=== PATIENT | male | born 1930 | race Caucasian/White ===

== ENCOUNTER 2018-01-05 19:33 | Observation (INO) | payer MEDICARE ==
[~2018-01-05] VITALS: Ht 175.3 cm; Wt 78.0 kg
[2018-01-05 19:40] VITALS: BP 135/63; PULSE 64; RESP 16; TEMP 98; O2SAT 100
[2018-01-05 19:49] VITALS: O2SAT 100
[2018-01-05] MEDS ORDERED: OMEP40CA2 PO (19:51)
[2018-01-05] MEDS ORDERED: MULTTAB4 PO (19:51)
[2018-01-05] MEDS ORDERED: LOVA20TA PO (19:51)
[2018-01-05] MEDS ORDERED: CALC1TAB87 PO (19:51)
[2018-01-05] MEDS ORDERED: CLAR10CA3 PO (19:51)
--- NOTE | 2018-01-05 19:53 | PD ---
HPI Chief Complaint: Syncope/Near-Syncope Time Seen by Provider: 19:38 Travel History International Travel<30 days: No Contact w/Intl Traveler<30days: No Traveled to known affect area: No History of Present Illness HPI The patient is a 87-year-old male who presents to the emergency department via EMS from [facility] for near syncope. The patient was at dinner earlier today, sitting in the sun, when he suddenly became nauseated. The patient developed nausea, became lightheaded, and had a near syncopal episode according to the family member. The patient was sitting down, did not fall out of the chair. He awakened shortly, there was no postictal state, however, he did have 1 episode of vomiting afterwards. The patient was administered Zofran 4 mg intravenously prior to arrival. He denied any chest pain, palpitations, shortness of breath, or focal deficits prior to the near syncopal episode or after the near-syncopal episode. He denies any history of syncope. The patient's only complaint upon arrival is mild nausea. He denies any abdominal pain. Symptoms are moderate. PFSH Past Medical History Narrative Medical Hyperlipidemia, GERD Past Surgical History Narrative Surgical Noncontributory Social History Tobacco Use: No Allergies-Medications (Allergen,Severity, Reaction): Coded Allergies: No Known Allergies (Unverified , 01/05/18) Reported Meds & Prescriptions Reported Meds & Active Scripts Active Reported Claritin (Loratadine) 10 Mg Cap 10 Mg PO DAILY PRN Calcium 600 with Vitamin D (Calcium Carbonate-Cholecalciferol) 600-400 mg-Unit Tab 1 Tab PO BID Multi Vitamin Mens (Multiple Vitamin) 1 Tab Tab 1 Tab PO DAILY Omeprazole 40 Mg Cap 40 Mg PO DAILY Lovastatin 20 Mg Tab 20 Mg PO DAILY Review of Systems Except as stated in HPI: all other systems reviewed are Neg General / Constitutional: No: Fever Eyes: No: Blurred Vision HENT: Positive: Lightheadedness, No: Headaches Cardiovascular: Positive: Syncope, No: Chest Pain or Discomfort, Palpitations, Irregular Rhythm, Tachycardia, Diaphoresis Gastrointestinal: Positive: Nausea, Vomiting, No: Abdominal Pain Musculoskeletal: No: Weakness Neurologic: Positive: Dizziness, Syncope, No: Weakness, Focal Abnormalities Physical Exam Narrative GENERAL: Awake, alert, pleasant 87-year-old male who appears his stated age and is in no acute respiratory distress. SKIN: Focused skin assessment warm/dry. HEAD: Atraumatic. Normocephalic. EYES: No injection or drainage. ENT: No nasal bleeding or discharge. Mucous membranes pink and moist. NECK: Trachea midline. No JVD. CARDIOVASCULAR: Regular rate and rhythm. No murmur appreciated. Heart rate in the 60s. RESPIRATORY: No accessory muscle use. Clear to auscultation. Breath sounds equal bilaterally. GASTROINTESTINAL: Abdomen soft, non-tender, nondistended. No epigastric tenderness. No guarding or rigidity. MUSCULOSKELETAL: No obvious deformities. No clubbing. No cyanosis. No edema. NEUROLOGICAL: Awake and alert. No obvious cranial nerve deficits. Motor grossly within normal limits. Normal speech. Nonfocal. Oriented 4. Follows commands without difficulty. PSYCHIATRIC: Appropriate mood and affect; insight and judgment normal. Data Data Last Documented VS Vital Signs Date Time Temp Pulse Resp B/P (MAP) Pulse Ox O2 Delivery O2 Flow Rate FiO2 01/05/18 21:45 90 18 148/101 (117) 99 Room Air 01/05/18 19:40 98.0 Orders Orders Electrocardiogram (01/05/18 19:46) Complete Blood Count With Diff (01/05/18 19:46) Comprehensive Metabolic Panel (01/05/18 19:46) Magnesium (Mg) (01/05/18 19:46) Ckmb (Isoenzyme) Profile (01/05/18 19:46) Troponin I (01/05/18 19:46) Ecg Monitoring (01/05/18 19:46) Iv Access Insert/Monitor (01/05/18 19:46) Oximetry (01/05/18 19:46) Ondansetron Inj (Zofran Inj) (01/05/18 20:00) Sodium Chloride 0.9% Flush (Ns Flush) (01/05/18 20:00) Orthostatic Vital Signs (01/05/18 19:46) Sodium Chlorid 0.9% 500 Ml Inj (Ns 500 M (01/05/18 20:00) CKMB (01/05/18 20:00) CKMB% (01/05/18 20:00) Chest, Single Ap (01/05/18 ) Admit Order (Ed Use Only) (01/05/18 22:00) Labs Laboratory Tests Test 01/05/18 20:00 White Blood Count 6.7 TH/MM3 Red Blood Count 4.32 MIL/MM3 Hemoglobin 14.6 GM/DL Hematocrit 41.5 % Mean Corpuscular Volume 96.0 FL Mean Corpuscular Hemoglobin 33.8 PG Mean Corpuscular Hemoglobin Concent 35.3 % Red Cell Distribution Width 13.5 % Platelet Count 239 TH/MM3 Mean Platelet Volume 8.1 FL Neutrophils (%) (Auto) 50.7 % Lymphocytes (%) (Auto) 39.2 % Monocytes (%) (Auto) 6.2 % Eosinophils (%) (Auto) 3.4 % Basophils (%) (Auto) 0.5 % Neutrophils # (Auto) 3.4 TH/MM3 Lymphocytes # (Auto) 2.6 TH/MM3 Monocytes # (Auto) 0.4 TH/MM3 Eosinophils # (Auto) 0.2 TH/MM3 Basophils # (Auto) 0.0 TH/MM3 CBC Comment DIFF FINAL Differential Comment Blood Urea Nitrogen 23 MG/DL Creatinine 0.99 MG/DL Random Glucose 122 MG/DL Total Protein 7.5 GM/DL Albumin 3.6 GM/DL Calcium Level 8.8 MG/DL Magnesium Level 2.2 MG/DL Alkaline Phosphatase 75 U/L Aspartate Amino Transf (AST/SGOT) 35 U/L Alanine Aminotransferase (ALT/SGPT) 26 U/L Total Bilirubin 0.3 MG/DL Sodium Level 140 MEQ/L Potassium Level 4.3 MEQ/L Chloride Level 105 MEQ/L Carbon Dioxide Level 27.4 MEQ/L Anion Gap 8 MEQ/L Estimat Glomerular Filtration Rate 72 ML/MIN Total Creatine Kinase 124 U/L Creatine Kinase MB 2.0 NG/ML Troponin I LESS THAN 0.02 NG/ML MDM Medical Decision Making Medical Screen Exam Complete: Yes Emergency Medical Condition: Yes Medical Record Reviewed: Yes Interpretation(s) EKG reveals sinus rhythm with sinus arrhythmia. Laboratory Tests Test 01/05/18 20:00 White Blood Count 6.7 TH/MM3 Red Blood Count 4.32 MIL/MM3 Hemoglobin 14.6 GM/DL Hematocrit 41.5 % Mean Corpuscular Volume 96.0 FL Mean Corpuscular Hemoglobin 33.8 PG Mean Corpuscular Hemoglobin Concent 35.3 % Red Cell Distribution Width 13.5 % Platelet Count 239 TH/MM3 Mean Platelet Volume 8.1 FL Neutrophils (%) (Auto) 50.7 % Lymphocytes (%) (Auto) 39.2 % Monocytes (%) (Auto) 6.2 % Eosinophils (%) (Auto) 3.4 % Basophils (%) (Auto) 0.5 % Neutrophils # (Auto) 3.4 TH/MM3 Lymphocytes # (Auto) 2.6 TH/MM3 Monocytes # (Auto) 0.4 TH/MM3 Eosinophils # (Auto) 0.2 TH/MM3 Basophils # (Auto) 0.0 TH/MM3 CBC Comment DIFF FINAL Differential Comment Blood Urea Nitrogen 23 MG/DL Creatinine 0.99 MG/DL Random Glucose 122 MG/DL Total Protein 7.5 GM/DL Albumin 3.6 GM/DL Calcium Level 8.8 MG/DL Magnesium Level 2.2 MG/DL Alkaline Phosphatase 75 U/L Aspartate Amino Transf (AST/SGOT) 35 U/L Alanine Aminotransferase (ALT/SGPT) 26 U/L Total Bilirubin 0.3 MG/DL Sodium Level 140 MEQ/L Potassium Level 4.3 MEQ/L Chloride Level 105 MEQ/L Carbon Dioxide Level 27.4 MEQ/L Anion Gap 8 MEQ/L Estimat Glomerular Filtration Rate 72 ML/MIN Total Creatine Kinase 124 U/L Creatine Kinase MB 2.0 NG/ML Troponin I LESS THAN 0.02 NG/ML Differential Diagnosis Differential diagnosis includes near-syncope, vasovagal syncope, cardiogenic syncope, aortic stenosis, arrhythmia, electrolyte abnormality, dissection, subarachnoid hemorrhage, seizure. Narrative Course IV was established, labs are drawn and sent, and the patient was placed on cardiac telemetry monitoring and continuous pulse oximetry monitoring. EKG was ordered and interpreted. Orthostatic vital signs were obtained. The patient was administered Zofran and IV fluid bolus. EKG reveals sinus rhythm with sinus arrhythmia. Orthostatic vital signs revealed normal heart rate and blood pressure, however, the patient was lightheaded when going from a lying position to sitting position. The patient's labs are unremarkable. Patient had a few PVCs on telemetry monitoring, had a sinus arrhythmia, but no visible tachyarrhythmias to explain the patient's syncope at rest. The patient was given a trial of ambulation, however, was weak and almost fell several times when ambulating. Therefore, patient will be 23 hour observation for IV fluids in cardiac telemetry monitoring. His symptoms improved in the morning time he may be able to be discharged and follow-up with his physician in [place], [place]. Physician Communication Physician Communication The on-call medical service was paged for 23 hour observation. I discussed the patient with Dr. Cochran who agrees with 23 hour observation. Diagnosis Primary Impression: Syncope Qualified Codes: R55 - Syncope and collapse Admitting Information Admitting Physician Requests: Observation Condition: Stable Paolo James MD Jan 05, 2018 19:53
[2018-01-05 19:55] VITALS: BP_SYST 129; BP_SYST 132; BP_SYST 141; BP_DIAS 63; BP_DIAS 64; BP_DIAS 68
[2018-01-05] MEDS ORDERED: SODIUM CHLORID 0.9% 500 ML INJ 500 ML IV ONE (20:00)
[2018-01-05] MEDS ORDERED: SODIUM CHLORIDE 0.9% FLUSH 10 ML FLUSH IVF PRN (20:00)
[2018-01-05] MEDS ORDERED: ONDANSETRON HCL 4 MG/2 ML VIAL IVP ONE (20:00)
[2018-01-05 20:22] LABS: AUTOMATED NEUTROPHIL # 3.4 TH/MM3 (1.8-7.7); BASOPHIL % 0.5 % (0.0-2.0); EOSINOPHIL # 0.2 TH/MM3 (0-0.4); EOSINOPHIL % 3.4 % (0.0-4.0); HEMATOCRIT 41.5 % (39.0-51.0); HEMOGLOBIN 14.6 GM/DL (13.0-17.0); LYMPH % 39.2 % (9.0-44.0); LYMPHOCYTE # 2.6 TH/MM3 (1.0-4.8); MEAN CORPUSCULAR HEMOGLOBIN 33.8 PG (27.0-34.0); MEAN CORPUSCULAR HGB CONC 35.3 % (32.0-36.0); MEAN PLATELET VOLUME 8.1 FL (7.0-11.0); MONO % 6.2 % (0.0-8.0); MONOCYTE # 0.4 TH/MM3 (0-0.9); NEUT % 50.7 % (16.0-70.0); PLATELET COUNT 239 TH/MM3 (150-450); RED BLOOD COUNT 4.32 MIL/MM3 (4.50-5.90); RED CELL DISTRIBUTION WIDTH 13.5 % (11.6-17.2); WHITE BLOOD COUNT 6.7 TH/MM3 (4.0-11.0)
[2018-01-05 20:42] LABS: ALBUMIN 3.6 GM/DL (3.4-5.0); ALKALINE PHOSPHATASE 75 U/L (45-117); ALT (GPT) 26 U/L (12-78); AST (GOT) 35 U/L (15-37); BICARBONATE 27.4 MEQ/L (21.0-32.0); BLOOD UREA NITROGEN 23 MG/DL (7-18); CALCIUM 8.8 MG/DL (8.5-10.1); CHLORIDE 105 MEQ/L (98-107); CREATININE 0.99 MG/DL (0.60-1.30); GLOMERULAR FILTRATION RATE 72 ML/MIN (>89); GLUCOSE,RANDOM 122 MG/DL (74-106); MAGNESIUM 2.2 MG/DL (1.5-2.5); SODIUM (NA) 140 MEQ/L (136-145); TOTAL BILIRUBIN ADULT 0.3 MG/DL (0.2-1.0); TOTAL PROTEIN 7.5 GM/DL (6.4-8.2); TROPONIN I LESS THAN 0.02 NG/ML (0.02-0.05)
[2018-01-05 21:45] VITALS: BP 148/101; PULSE 90; RESP 18; O2SAT 99
--- NOTE | 2018-01-05 22:14 | HHI.HP ---
[facility] Unknown Admission Diagnosis syncope Diagnoses: (1) Syncope Diagnosis: Principal (2) Dehydration Diagnosis: Principal Travel History International Travel<30 Days: No Contact w/Intl Traveler <30 Da: No Traveled to Known Affected Are: No History of Present Illness This is an 87-year-old male with a PMH of Hyperlipidemia and GERD who was brought to the ER by EMS secondary to syncopal event. Per patient and family, patient was having dinner when he had acute onset of nausea and vomiting followed by syncopal event. No seizure-like activity reported. No previous history of similar symptoms. Denies complaints of chest pain or SOB. On arrival, BP 135/63, HR 64, O2 sat 100% RA, Afebrile. CBC unremarkable. BUN 23 , GFR 72, no previous labs for comparison. Troponin negative. S/p IVF in ER w / plans for discharge, however pt w/ dizziness/unsteady gait upon ambulation. Denies any complaints at this time. Follows w/ PCP in [facility] recent appt for routine check up was fine. Review of Systems Except as stated in HPI: all other systems reviewed are Neg ROS: 14 point review of systems otherwise negative. Past Family Social History Past Medical History PMH: Hyperlipidemia and GERD Past Surgical History PAST SURGICAL HISTORY: None Allergies: Coded Allergies: No Known Allergies (Unverified , 01/05/18) Family History PAST FAMILY HISTORY: Reviewed. No h/o DM or CAD Social History PAST SOCIAL HISTORY: Negative for alcohol, tobacco or drugs Physical Exam Vital Signs Vital Signs Date Time Temp Pulse Resp B/P (MAP) Pulse Ox O2 Delivery O2 Flow Rate FiO2 01/05/18 21:45 90 18 148/101 (117) 99 Room Air 01/05/18 19:55 64 132/64 (86) 63 141/68 (92) 70 129/63 (85) 01/05/18 19:49 100 Room Air 01/05/18 19:40 98.0 64 16 135/63 (87) 100 Physical Exam PE: GENERAL: Very pleasant elderly white male in no acute distress, looks younger than stated age. Family at bedside. HEENT: PERRLA, EOMI. No scleral icterus or conjunctival pallor. No lid lag or facial droop. Facial sunburn CARDIOVASCULAR: Regular rate and rhythm. No obvious murmurs to auscultation. No chest tenderness to palpation. RESPIRATORY: No obvious rhonchi or wheezing. Clear to auscultation. Breath sounds equal bilaterally. GASTROINTESTINAL: Abdomen soft, non-tender, nondistended. BS normal. MUSCULOSKELETAL: Extremities without clubbing, cyanosis, or edema. No obvious deformities. NEUROLOGICAL: Awake, alert and oriented x4. No focal neurologic deficits. Moving both upper and lower extremities spontaneously. Laboratory Laboratory Tests Test 01/05/18 20:00 White Blood Count 6.7 Red Blood Count 4.32 Hemoglobin 14.6 Hematocrit 41.5 Mean Corpuscular Volume 96.0 Mean Corpuscular Hemoglobin 33.8 Mean Corpuscular Hemoglobin Concent 35.3 Red Cell Distribution Width 13.5 Platelet Count 239 Mean Platelet Volume 8.1 Neutrophils (%) (Auto) 50.7 Lymphocytes (%) (Auto) 39.2 Monocytes (%) (Auto) 6.2 Eosinophils (%) (Auto) 3.4 Basophils (%) (Auto) 0.5 Neutrophils # (Auto) 3.4 Lymphocytes # (Auto) 2.6 Monocytes # (Auto) 0.4 Eosinophils # (Auto) 0.2 Basophils # (Auto) 0.0 CBC Comment DIFF FINAL Differential Comment Blood Urea Nitrogen 23 Creatinine 0.99 Random Glucose 122 Total Protein 7.5 Albumin 3.6 Calcium Level 8.8 Magnesium Level 2.2 Alkaline Phosphatase 75 Aspartate Amino Transf (AST/SGOT) 35 Alanine Aminotransferase (ALT/SGPT) 26 Total Bilirubin 0.3 Sodium Level 140 Potassium Level 4.3 Chloride Level 105 Carbon Dioxide Level 27.4 Anion Gap 8 Estimat Glomerular Filtration Rate 72 Total Creatine Kinase 124 Creatine Kinase MB 2.0 Troponin I LESS THAN 0.02 Result Diagram: 01/05/18199901/05/181999 Caprini VTE Risk Assessment Caprini VTE Risk Assessment: No/Low Risk (score <= 1) Caprini Risk Assessment Model Point Value = 1 Point Value = 2 Point Value = 3 Point Value = 5 Age 41-60 Minor surgery BMI > 25 kg/m2 Swollen legs Varicose veins or History of unexplained or recurrent spontaneous Oral contraceptives or hormone replacement Sepsis (< 1 month) Serious lung disease, including pneumonia (< 1 month) Abnormal pulmonary function Acute myocardial infarction Congestive heart failure (< 1 month) History of inflammatory bowel disease Medical patient at bed rest Age 61-74 Arthroscopic surgery Major open surgery (> 45 min) Laparoscopic surgery (> 45 min) Malignancy Confined to bed (> 72 hours) Immobilizing plaster cast Central venous access Age >= 75 History of VTE Family history of VTE Factor V Leiden Prothrombin [id number] Lupus anticoagulant Anticardiolipin antibodies Elevated serum homocysteine Heparin-induced thrombocytopenia Other congenital or acquired thrombophilia Stroke (< 1 month) Elective arthroplasty Hip, pelvis, or leg fracture Acute spinal cord injury (< 1 month) Prophylaxis Regimen Total Risk Factor Score Risk Level Prophylaxis Regimen 0-1 Low Early ambulation 2 Moderate Order ONE of the following: *Sequential Compression Device (SCD) *Heparin 5000 units SQ BID 3-4 Higher Order ONE of the following medications: *Heparin 5000 units SQ TID *Enoxaparin/Lovenox 40 mg SQ daily (WT < 150 kg, CrCl > 30 mL/min) *Enoxaparin/Lovenox 30 mg SQ daily (WT < 150 kg, CrCl > 10-29 mL/min) *Enoxaparin/Lovenox 30 mg SQ BID (WT < 150 kg, CrCl > 30 mL/min) AND/OR *Sequential Compression Device (SCD) 5 or more Highest Order ONE of the following medications: *Heparin 5000 units SQ TID (Preferred with Epidurals) *Enoxaparin/Lovenox 40 mg SQ daily (WT < 150 kg, CrCl > 30 mL/min) *Enoxaparin/Lovenox 30 mg SQ daily (WT < 150 kg, CrCl > 10-29 mL/min) *Enoxaparin/Lovenox 30 mg SQ BID (WT < 150 kg, CrCl > 30 mL/min) AND *Sequential Compression Device (SCD) Assessment and Plan Problem List: (1) Syncope ICD Code: R55 - Syncope and collapse Status: Acute (2) Dehydration ICD Code: E86.0 - Dehydration Assessment and Plan A/P: 1. Syncope: Likely vasovagal, acute onset of dizziness/lightheadedness followed by nausea/vomiting after eating dinner. Admit for Observation, telemetry, IVF for hydration. Initial trop negative, will check serial cardiac enzymes to eval for underlying ischemia. Check Echo to eval for valvular abnormality/cardiomyopathy. Check CXR to eval for underlying PNA/cardiomegaly. 2. Dehydration: BUN 23, GFR 72. Check U/a to eval for underlying UTI. IVF for hydration, repeat labs in am 3. DVT Prophylaxis: SCD/Teds. 4. Social work for d/c planning as needed 5. Case discussed w/ ER physician at length, labs/records/imaging reviewed by me. Problem Qualifiers (1) Syncope: Qualified Codes: R55 - Syncope and collapse Emerald Cochran MD Jan 05, 2018 22:14
[2018-01-05] MEDS ORDERED: ACETAMINOPHEN/HYDROcodone 325 MG/5 MG TAB PO PRN (22:15)
[2018-01-05] MEDS ORDERED: ACETAMINOPHEN 325 MG TAB PO PRN (22:15)
[2018-01-05] MEDS ORDERED: MORPHINE SULFATE 2 MG/ML INJ IV PUSH PRN (22:15)
[2018-01-05] MEDS ORDERED: BISACODYL 10 MG SUPP RECTAL PRN (22:15)
[2018-01-05] MEDS ORDERED: MAGNESIUM HYDROXIDE SUSP 30 ML CUP PO PRN (22:15)
[2018-01-05] MEDS ORDERED: SENNOSIDES 8.6 MG TAB PO PRN (22:15)
[2018-01-05] MEDS ORDERED: LACTULOSE SYRUP 20 GM/30 ML CUP PO PRN (22:15)
[2018-01-05] MEDS ORDERED: ONDANSETRON HCL 4 MG/2 ML VIAL IVP PRN (22:15)
[2018-01-05] MEDS ORDERED: SODIUM CHLORIDE 0.9% FLUSH 10 ML FLUSH IV FLUSH PRN (22:15)
[2018-01-05 22:20] VITALS: BP 122/62; PULSE 100; RESP 16; O2SAT 100
--- NOTE | 2018-01-05 22:25 | RADRPT ---
EXAM DATE/TIME: 01/05/2018 22:09 [facility] COMPARISON: No previous studies available for comparison. INDICATIONS : Syncopal episode today. Patient became very dizzy and started vomiting. MEDICAL HISTORY : None. SURGICAL HISTORY : None. ENCOUNTER: Initial ACUITY: 1 day PAIN SCORE: 0/10 LOCATION: Bilateral chest FINDINGS: Minimal parenchymal changes right base. Left lung clear. The heart and pulmonary vascularity are normal. The portion of the bony skeleton vis ualized is unremarkable. CONCLUSION: Multiple changes right base nonspecific Juan Hoyt MD FACR on January 05, 2018 at 22:22 Board Certified Radiologist. This report was verified electronically.
[2018-01-05] MEDS: SODIUM CHLOR 0.9% 1000 ML INJ 1,000 ML IV SCH (23:27)
[2018-01-06 00:23] VITALS: BP 108/52; PULSE 74; RESP 18; TEMP 98.2; O2SAT 97
[2018-01-06 03:38] VITALS: BP 134/61; PULSE 78; RESP 18; TEMP 98.2; O2SAT 98
[2018-01-06 04:56] LABS: BILIRUBIN, URINE NEG (NEG); BLOOD, URINE NEG (NEG); GLUCOSE,URINE TRACE mg/dL (NEG); HYALINE CAST, URINE 1 /lpf (RARE); KETONE, URINE NEG (NEG); NITRITE,URINE NEG (NEG); URINE COLOR YELLOW (YELLW/STRAW); URINE LEUKOCYTE ESTERASE NEG (NEG)
[2018-01-06 07:26] LABS: AUTOMATED NEUTROPHIL # 5.1 TH/MM3 (1.8-7.7); BASOPHIL % 0.2 % (0.0-2.0); EOSINOPHIL # 0.1 TH/MM3 (0-0.4); EOSINOPHIL % 0.9 % (0.0-4.0); HEMATOCRIT 37.7 % (39.0-51.0); HEMOGLOBIN 12.9 GM/DL (13.0-17.0); LYMPH % 23.8 % (9.0-44.0); LYMPHOCYTE # 1.8 TH/MM3 (1.0-4.8); MEAN CORPUSCULAR HEMOGLOBIN 32.5 PG (27.0-34.0); MEAN CORPUSCULAR HGB CONC 34.2 % (32.0-36.0); MEAN PLATELET VOLUME 7.9 FL (7.0-11.0); MONO % 7.5 % (0.0-8.0); MONOCYTE # 0.6 TH/MM3 (0-0.9); NEUT % 67.6 % (16.0-70.0); PLATELET COUNT 200 TH/MM3 (150-450); RED BLOOD COUNT 3.97 MIL/MM3 (4.50-5.90); RED CELL DISTRIBUTION WIDTH 13.7 % (11.6-17.2); WHITE BLOOD COUNT 7.6 TH/MM3 (4.0-11.0)
[2018-01-06 07:51] LABS: ALT (GPT) 18 U/L (12-78); AST (GOT) 12 U/L (15-37); BICARBONATE 25.2 MEQ/L (21.0-32.0); BLOOD UREA NITROGEN 20 MG/DL (7-18); CALCIUM 8.5 MG/DL (8.5-10.1); CHLORIDE 108 MEQ/L (98-107); CREATININE 0.86 MG/DL (0.60-1.30); GLOMERULAR FILTRATION RATE 84 ML/MIN (>89); GLUCOSE,RANDOM 96 MG/DL (74-106); SODIUM (NA) 142 MEQ/L (136-145)
[2018-01-06 07:53] LABS: ALKALINE PHOSPHATASE 66 U/L (45-117); TOTAL BILIRUBIN ADULT 0.5 MG/DL (0.2-1.0); TOTAL PROTEIN 6.4 GM/DL (6.4-8.2); TROPONIN I LESS THAN 0.02 NG/ML (0.02-0.05)
[2018-01-06] MEDS ORDERED: SODIUM CHLORIDE 0.9% FLUSH 10 ML FLUSH IV FLUSH SCH (09:00)
[2018-01-06] MEDS ORDERED: PANTOPRAZOLE SOD 40 MG DELAYED RELEASE TAB PO SCH (09:00)
[2018-01-06] MEDS ORDERED: DOCUSATE SODIUM 50 MG/SENNA 8.6 MG TAB PO SCH (09:00)
[2018-01-06] MEDS ORDERED: PRAVASTATIN SOD 20 MG TAB PO SCH (09:00)
[2018-01-06] MEDS ORDERED: MULTIVITAMIN TAB PO SCH (09:00)
[2018-01-06 09:06] VITALS: BP 134/62; PULSE 65; RESP 18; TEMP 97.9; O2SAT 98
[2018-01-06] MEDS: SODIUM CHLOR 0.9% 1000 ML INJ 1,000 ML IV SCH (09:47)
--- NOTE | 2018-01-06 10:03 | RADRPT ---
EXAM DATE/TIME: 01/06/2018 09:09 [facility] COMPARISON: No previous studies available for comparison. INDICATIONS : Syncope. MEDICAL HISTORY : Hypercholesterolemia. Gastroesophageal reflux disease. Cardiac disorders. SURGICAL HISTORY : Tonsillectomy. Hernia repair. ENCOUNTER: Initial ACUITY: 1 day PAIN SCORE: 0/10 LOCATION: Bilateral neck PEAK SYSTOLIC VELOCITIES (cm/sec): ICA/CCA RATIO: Right: 0.9 Left: 0.9 ICA: Right: 111 Left: 157 CCA: Right: 124 Left: 178 ECA: Right: 120 Left: 181 VERTEBRAL: Right: 68 antegrade Left: 60 antegrade Elevated flow velocities and ICA/CCA ratios have been found to correlate with increased degrees of vessel stenosis, calculated as percentage of diameter relative to a normal segment of distal ICA/CCA FINDINGS: RIGHT CAROTID: No significant stenosis is visualized. The waveforms are within normal limits. LEFT CAROTID: No significant stenosis is visualized. The waveforms are within normal limits. VERTEBRAL ARTERIES: Antegrade flow is seen in both vertebral arteries. MISCELLANEOUS: None. CONCLUSION: No hemodynamically significant stenosis. Scott Villegas MD on January 06, 2018 at 10:00 Board Certified Radiologist. This report was verified electronically.
--- NOTE | 2018-01-06 10:39 | HHI.PR ---
Subjective Remarks Pt feels well. Wants to go home. States he has a PCP he follows w regularly at [facility]. Pt's family would really like to take him home. They feel he had a vasovagal episode. Objective Vitals Vital Signs Date Time Temp Pulse Resp B/P (MAP) Pulse Ox O2 Delivery O2 Flow Rate FiO2 01/06/18 09:06 97.9 65 18 134/62 (86) 98 01/06/18 03:38 98.2 78 18 134/61 (85) 98 01/06/18 00:23 98.2 74 18 108/52 (70) 97 01/05/18 22:20 100 16 122/62 (82) 100 Room Air 01/05/18 21:45 90 18 148/101 (117) 99 Room Air 01/05/18 19:55 64 132/64 (86) 63 141/68 (92) 70 129/63 (85) 01/05/18 19:49 100 Room Air 01/05/18 19:40 98.0 64 16 135/63 (87) 100 I/O 01/05/18 01/05/18 01/05/18 01/06/18 01/06/18 01/06/18 07:00 15:00 23:00 07:00 15:00 23:00 Intake Total 500 ml Balance 500 ml Intake IV Total 500 ml Result Diagram: 01/06/1849 01/06/18 0649 Imaging Objective Remarks GENERAL: Very pleasant elderly male. Family at bedside. HEENT: EOMI. CARDIOVASCULAR: Regular rate and rhythm. No obvious murmurs to auscultation. No chest tenderness to palpation. RESPIRATORY: No obvious rhonchi or wheezing. Clear to auscultation. Breath sounds equal bilaterally. GASTROINTESTINAL: Abdomen soft, non-tender, nondistended. BS normal. MUSCULOSKELETAL: Extremities without edema. No obvious deformities. NEUROLOGICAL: Awake, alert and oriented x4. No focal neurologic deficits. Moving both upper and lower extremities spontaneously. Able to stand up and not feel lightheaded upon my request. No weakness noted. A/P Problem List: (1) Syncope ICD Code: R55 - Syncope and collapse Status: Acute (2) Dehydration ICD Code: E86.0 - Dehydration Assessment and Plan 1. Syncope: Most Likely vasovagal, acute onset of dizziness/lightheadedness followed by nausea/vomiting after eating dinner. Pt states he felt full then nauseous.Pt was admitted for observation, telemetry and IVF for hydration. CE neg x 3. Carotid u/s neg for stenosis. Family would really like to take him home. I explained the importance of getting the ECHO. Family initially requested it to be done as an outpatient however, we agreed to at least have the ECHO done prior to d/c and pt to f/u w PCP next week to go over results. ECHO report would be ready by then. I will f/u CXR neg for PNA/cardiomegaly. U/ A neg. 2. Dehydration: BUN 23, GFR 72. Check U/a to eval for underlying UTI. IVF for hydration, repeat labs in am 3. DVT Prophylaxis: SCD/Teds. Problem Qualifiers (1) Syncope: Qualified Codes: R55 - Syncope and collapse Adelaida Freeman MD Jan 06, 2018 10:39
--- NOTE | 2018-01-06 19:40 | EKG ---
Date Performed: 01/05/2018 Time Performed: 19:58:38 PTAGE: 87 years EKG: Sinus rhythm WITH MARKED SINUS ARRHYTHMIA Since the previous tracing, no significant change noted BORDERLINE ECG NO PREVIOUS TRACING DOCTOR: Gonzalez Ramos Interpretating Date/Time 01/06/2018 19:38:52
--- NOTE | 2018-01-08 12:11 | ECHRPT ---
Indication: CONCLUSIONS Normal left ventricular size. Wall thickness is normal. The left ventricular systolic function is low normal with an estimated ejection fraction in the rang e of 50- 55%. Trace aortic valve regurgitation. BP: / HR: Rhythm: MEASUREMENTS (Male / Female) Normal Values Technical Quality: 2D ECHO LV Diastolic Diameter PLAX 4.7 cm 4.2 - 5.9 / 3.9 - 5.3 cm LV Systolic Diameter PLAX 3.4 cm IVS Diastolic Thickness 0.8 cm 0.6 - 1.0 / 0.6 - 0.9 cm LVPW Diastolic Thickness 0.7 cm 0.6 - 1.0 / 0.6 - 0.9 cm LV Relative Wall Thickness 0.3 LA Systolic Diameter LX 3.8 cm 3.0 - 4.0 / 2.7 - 3.8 cm M-MODE Aortic Root Diameter MM 3.1 cm AV Cusp Separation MM 2.0 cm DOPPLER Mitral E Point Velocity 76.8 cm/s Mitral A Point Velocity 97.4 cm/s Mitral E to A Ratio 0.8 TR Peak Velocity 255.0 cm/s TR Peak Gradient 26.0 mmHg FINDINGS LEFT VENTRICLE Normal left ventricular size. Wall thickness is normal. The left ventricular systolic function is low normal with an estimated ejection fraction in the rang e of 50- 55%. RIGHT VENTRICLE Normal right ventricular size and systolic function. LEFT ATRIUM The left atrial size is normal. RIGHT ATRIUM The right atrial size is normal. ATRIAL SEPTUM Normal atrial septal thickness without atrial level shunting by limited color doppler interrogation. AORTA The aortic root and proximal ascending aorta are normal in size on limited imaging. MITRAL VALVE Structurally normal mitral valve. No mitral valve stenosis or regurgitation. AORTIC VALVE Trace aortic valve regurgitation. TRICUSPID VALVE Structurally normal tricuspid valve. No tricuspid valve stenosis or regurgitation. PULMONARY VALVE The pulmonary valve is not well visualized. VESSELS The inferior vena cava is normal in size. PERICARDIUM No pericardial effusion. Bora Arzola MD Edited by: nursing service administrator nursing service administrator (Electronically Signed) Final Date:06 January 2018 11:29 Amended: 08 January 2018 12:10
== END 2018-01-06 13:40 | disposition home or self-care (01) ==
LOC: NEPE 19:33 → NEDA 22:01 → NEPGCP 23:21
PROVIDERS: ADMIT Hospitalist; ATTEND Hospitalist
DX: R55 Syncope and collapse (principal); E86.0 Dehydration; R42 Dizziness and giddiness; I49.9 Cardiac arrhythmia, unspecified; E78.5 Hyperlipidemia, unspecified; K21.9 Gastro-esophageal reflux disease without esophagitis
CPT/HCPCS: 71045; 80053; 81001; 82550; 82552; 83735; 84484; 85025; 93005; 93306; 93880; 96361; 96374; 99285; G0378; J2405; J7030; J7040